=== PATIENT | female | born 1980 | race Caucasian/White ===

== ENCOUNTER → 2023-10-23 | Emergency (ER) | payer OTHER ==
[~2023-10-23] VITALS: Ht 167.6 cm; Wt 54.4 kg
[~2023-10-23] MED LIST: ADDERALL 10 MG10 MG PO; CEFTRIAXONE SODIUM 1,000 MG VIAL IV STA
== END | disposition home or self-care (01) ==
LOC: ER 12:02
DX: L08.9 Local infection of the skin and subcutaneous tissue, unspecified (principal); T14.8XXA Other injury of unspecified body region, initial encounter
CPT/HCPCS: 96365; 99282; J0696